=== PATIENT | female | born 1965 | race Caucasian/White ===

== ENCOUNTER 2016-07-06 18:41 | Emergency (ER) | payer SELFPAY ==
[~2016-07-06] VITALS: Ht 167.6 cm; Wt 94.3 kg
[2016-07-06 18:53] VITALS: BP 129/77; PULSE 71; RESP 16; TEMP 97.6; O2SAT 97
== END 2016-07-06 21:37 | disposition left against medical advice (07) ==
LOC: PHED 18:41
DX: M79.661 Pain in right lower leg (principal)
CPT/HCPCS: 99281